=== PATIENT | female | born 1935 | race Caucasian/White ===

== ENCOUNTER 2016-11-14 06:21 | Day surgery (SDC) | payer MEDICARE, OTHER ==
[~2016-11-14] VITALS: Ht 162.7 cm; Wt 54.5 kg
[~2016-11-14 06:21] MED LIST: AREDS; ASPIRIN 81M81 MG/TA2; AZOR 5 MG-40 MG1 TAB; CALCIUM600 M1; COREG 6.256.25 MG/TA PO; GLUCOSAMINE & C1 CA1; HCTZ 25MG TAB25 MG; KLOR-CON 1010 MEQ; ZETIA 10MG TAB10 MG
[2016-11-14] MEDS ORDERED: COUMADIN 5MG5 MG/TAB PO (07:05)
[2016-11-14] MEDS ORDERED: ALPHA LIPOIC A200 M2 PO (07:06)
[2016-11-14 07:07] VITALS: BP 139/94; PULSE 140; TEMP 97.4
[2016-11-14 07:08] LABS: HEMATOCRIT 42.4 % (37.0-47.0); HEMOGLOBIN 14.7 g/dl (12.5-16.0); MEAN CELL VOLUME 87 fl (80.0-100.0); MEAN CORPUSCULAR HEMOGLOBIN 30 pg (27.0-31.0); MEAN CORPUSCULAR HGB CONC 35 g/dl (33.0-37.0); MEAN PLATELET VOLUME 9.9 fl (7.4-10.4); PLATELET COUNT 243 K/mm3 (130-400); REDCELL DISTRIBUTION WIDTH-CV 14.7 % (11.5-14.5)
[2016-11-14 07:10] LABS: INR 2.9 (0.8-3.0); PROTHROMBIN TIME 33.2 SECONDS (9.7-12.8)
[2016-11-14 07:24] LABS: CREATININE, serum 0.95 mg/dL (0.52-1.25); POTASSIUM 3.5 mmol/L (3.4-5.0)
[2016-11-14 08:45] VITALS: BP 113/82; PULSE 103
[2016-11-14] MEDS ORDERED: CORDARONE200 MG/TAB PO (08:54)
[2016-11-14] MEDS ORDERED: COREG 3.123.125 MG/T PO (08:54)
[2016-11-14 09:00] VITALS: BP 125/75; PULSE 96
[2016-11-14 09:15] VITALS: BP 133/91; PULSE 94
[2016-11-14 09:30] VITALS: BP 145/88; PULSE 95
[2016-11-14 09:45] VITALS: BP 136/86; PULSE 95
== END 2016-11-14 13:19 | disposition home or self-care (01) ==
LOC: EUO 06:21
PROVIDERS: Internal Medicine Cardiovascular Disease
DX: I48.91 Unspecified atrial fibrillation (principal); I77.812 Thoracoabdominal aortic ectasia; I08.3 Combined rheumatic disorders of mitral, aortic and tricuspid valves; Z79.899 Other long term (current) drug therapy
CPT/HCPCS: G9654; J0282; J2704; J7030